=== PATIENT | male | born 1960 | race Caucasian/White ===

== ENCOUNTER 2024-04-06 02:53 | Observation (INO) ==
--- NOTE | 2024-04-06 02:58 | Emergency Department Note ---
HPI - SOB/Dyspnea General Chief Complaint: SOB -Shortness of Breath Stated Complaint: SOB Time Seen by Provider: 04/06/24 02:57 Source: patient, family and EMS Mode of arrival: ambulance Limitations: no limitations History of Present Illness HPI Narrative: 63-year-old male presents to ER via EMS with complaint of shortness of breath, nonproductive cough, hypertension, and reports that he has not been taking his m edications as directed because he ran out. MD elicited complaint: Reports shortness of breath and cough Pertinent past history: Reports COPD and congestive heart failure Onset (ago): day(s) (3) Context: Reports recent illness and medication noncompliance Timing: Reports constant and progressively worsening Severity: moderate Exacerbating factors: Reports lying flat, exertion, movement, coughing, stress, warm air and humidity Relieving factors: Reports oxygen, rest, bronchodilators, upright position, medication and cool air Known history of: Reports COPD and congestive heart failure Associated symptoms: Reports chest pain, cough and orthopnea Treatment prior to arrival: Reports oxygen, bronchodilator and diuretics Related Data Home oxygen amount: 3 liters Allergies Allergy/AdvReac Type Severity Reaction Status Date / Time ketorolac (From Toradol) Allergy Unknown Verified 04/06/24 03:12 tramadol Allergy Unknown Verified 04/06/24 03:12 Review of Systems Status of ROS 10 or more systems reviewed and unremark able except as noted in history and below Constitutional Reports: fever and fatigue; Denies: chills, change in weight, ma laise, night sweats or change in sleep pattern Eyes Denies: change in vision, blurry vision, blind spots, light sensitivity, eye discomfort, eye discharge, dry eyes, increased production of tears, floaters, seeing flashes or decreased night vision Ears, nose, mouth, and throat Reports: nasal congestion; Denies: throat pain, neck pain, throat swelling, difficulty swallowing, hoarseness, mouth pain, swelling of lips/tongue, dry mouth, bad breath, ear pain, ear discharge, change in hearing, tinnitus, vertigo, nasal discharge, nose bleeds or post nasal drip Cardiovascular Reports: chest pain, swelling of feet/ankles, shortness of breath with exertion and shortness of breath when lying down; Denies: palpitati ons, edema, lightheadedness, leg pain with exertion or bluish discoloration of hands/feet Respiratory Reports: shortness of breath, cough, change in phlegm color and chest congestion; Denies: wheezing, stridor, pain on inspiration or coughing up blood Gastrointestinal Denies: abdominal pain, nausea, vomiting, coffee grounds in vomit, heartburn, diarrhea, constipation, bloating, belching, excessive passing of gas, difficulty swallowing, feeling full early, change in bowel habits, painful bowel movements, rectal pain, rectal swelling, rectal itching, change in stool character, blood in stool, mucus in stool, white/light colored stool or fatty stool Genitourinary Denies: painful urination, urinary frequency, urinary urgency, blood in urine, genital pain, genital lesion, penile discharge, testicular pain, testicular mass, scrotal swelling, difficulty urinating, nighttime urination, change in urine stream, decreased urine ouput, difficulty starting urination, urinary hesitancy, urinary dribbling, difficulty with ejactulations, painful ejaculations, blood in semen, change in libido or difficulty impregnating Musculoskeletal Reports: extremity swelling; Denies: back pain, neck pain, extremity pain, joint pain, limited range of motion, joint swelling, muscle cramps, muscle weakness or loss of height Integumentary/Breast Denies: rash, itching, redness, skin pain, skin tenderness, skin swelling, sores, new lesion, changing lesion, non-healing lesion, changes in skin color, jaundice, stretch tiwari, acne, nail changes, change in hair, breast pain, breast swelling, nipple discharge, breast mass, breast skin changes or change in breast shape Neurological Denies: headache, numbness in extremities, weakness in extremities, lack of coordination, dizziness, vertigo, confusion, behavioral changes, slurred speech, difficulty communicating thoughts, seizure-like activity or involuntary movements Psychiatric Reports: anxiety; Denies: mood swings, panic attacks, change in sleep pattern, hopelessness, loss of interest, irritability, paranoia, memory loss, difficulty concentrating, visual hallucinations, auditory hallucinations, tactile hallucinations, suicidal ideation or homicidal ideation Endocrine Denies: excessive urination, excessive thirst, fatigue, cold intolerance, excessive sweating, flushing, heat intolerance, deepening of the voice, change in body appearance or change in libido Hematologic/Lymphatic Denies: easy bruising, easy bleeding or enlarged lymph nodes Allergic/Immunologic Reports: wheezing; Denies: hives, throat swelling, tongue swelling, facial swelling, itchy eyes, seasonal allergies or food intolerance [facility] Medical History (Updated 04/06/24 @ 03:21 by Susy Pate RN) Pacemaker Dyslipidemia CHF (congestive heart failure) Myocardial infarct CAD (coronary artery disease) COPD (chronic obstructive pulmonary disease) Surgical History (Updated 04/06/24 @ 03:21 by Susy Pate RN) H/O vasectomy S/P angioplasty with stent Social History Smoking status: current every day smoker What tobacco products do you use: cigarettes Packs per day: 2 Smoking quit date/years: >15 years ago Second hand tobacco smoke exposure: No Within the past year, how often did you have a drink containing alcohol: monthly or less Within the past year, how many standard drinks containing alcohol did you have on a typical day: 1 or 2 Within the past year, how often did you have six or more drinks on one occasion: never Total score: 0 Score interpretation: A score less than 4 is consistent with normal alcohol consumption. Non-prescribed substance use: denies use What is your current living situation: I presently have a place to live Problems where you live: no known problems In the past 12 months, utilities in danger of being shut off: no In past 12 months, lack of transportation kept you from medical appts, meetings, work, or getting things needed for daily living: No How hard is it for you to pay for the very basics like food, housing, medical care, and heating: decline to answer Past 12 mos, fear food will run out before able to buy more: never true In past 12 months, food didn't last until money to buy more: never true Are you following a diet prescribed by a doctor: No Are you following a special diet: No Do you want help finding or keeping work or a job: I do not need or want help Known occupational exposures/hazards: No Highest level of school completed/degree received: decline to answer Do you want help with school or training: No Physical activity type: none Leisure activities: none Caffeine: No How often does anyone, including family, friends and others, physically hurt you : never How often does anyone, including family, friends and others, insult or talk down to you: never How often does anyone, including family, friends and others, threaten you with harm: never How often does anyone, including family, friends and others, scream or curse at you: never Firearms in home: unknown Do you need help with ADLs: I don't need any help Due to a physical, mental, or emotional condition, do you have difficulty doing errands alone such as visiting a doctor's office or shopping: No Little interest or pleasure in doing things: not at all Feeling down, depressed, or hopeless: not at all Feel stressed/tense/nervous/anxious/difficulty sleeping: to some extent Life stressor details: Current medical condition Due to disability, difficulty making decisions: No Do you think of yourself as: straight/heterosexual Gender Identity: male Are you currently sexually active: Yes Are you using contraception or practicing any form of control: No service: No Exam Constitutional: normal general appearance, distress noted (moderate) and (respiratory), abnormal body habitus (overweight), no limitations and alert Vital Signs - 24 hr 04/06/24 02:53 04/06/24 03:09 04/06/24 03:15 Temperature 98.9 F Pulse Rate 102 H 97 H Respiratory Rate 22 20 Blood Pressure 202/120 202/120 Pulse Oximetry 98 97 97 Oxygen Delivery Me thod Nasal Cannula Room Air Oxygen Flow Rate 3 04/06/24 03:30 04/06/24 03:56 04/06/24 04:00 Temperature Pulse Rate 106 H 98 H Respiratory Rate 15 14 Blood Pressure 193/121 164/97 164/97 Pulse Oximetry 99 96 Oxygen Delivery Me thod Room Air Room Air Oxygen Flow Rate 04/06/24 04:30 04/06/24 05:00 04/06/24 05:05 Temperature Pulse Rate 93 H 93 H Respiratory Rate 13 14 Blood Pressure 153/102 159/112 159/112 Pulse Oximetry 97 95 Oxygen Delivery Me thod Room Air Room Air Oxygen Flow Rate 04/06/24 05:30 Temperature Pulse Rate 87 Respiratory Rate 15 Blood Pressure 165/102 Pulse Oximetry 97 Oxygen Delivery Me thod Room Air Oxygen Flow Rate HENMT: normocephalic, head/scalp atraumatic, hearing grossly normal bilaterally, external ears normal, EACs normal, nasal mucous membranes normal, external nose normal, oral mucous membranes normal, oropharynx normal, dentition normal and gingiva normal Eyes: PERRL, EOMs intact bilaterally, conjunctivae normal, no scleral icterus, no papilledema, normal visual wei by confrontation, alignment normal, periorbital findings normal and no nystagmus Neck/C-Spine: visual inspection normal, trachea midline, cervical spine nontender, cervical full ROM noted, supple, no meningeal signs and thyroid normal Lymph: no lymphadenopathy noted and no lymphedema noted Chest: inspection of chest normal, inspection of breast(s) abnormal and palpation of breast(s) abnormal Respiratory: breath sounds equal bilaterally, abnormal respiratory effort (labored), clear to auscultation bilaterally, wheezing noted (expiratory wheezes), rales noted (throughout), no retractions and use of accessory muscles noted (Belly Breathing) Cardiovascular: heart rate abnormal (102) (tachycardic), regular rhythm noted, no JVD, no clicks, peripheral pulses 2+ throughout and no additional abnormal heart sounds Gastrointestinal: abdomen normal to inspection, abdomen soft to palpation, nontender to palpation, distended, normoactive bowel sounds, no hepatosplenomegaly, no masses, no pulsatile mass and normal rectal exam (deferred) Genitourinary: no CVA tenderness, bladder normal to palpation, penis abnormal (deferred), uncircumcised, testes abnormal, meatus abnormal (deferred), scrotum abnormal (deferred) and inguinal lymphadenopathy noted Back/Pelvis: spine normal to inspection, no thoracic spine tenderness, no lumbar spine tenderness, thoracic spine ROM normal, lumbar spine ROM normal and no paraspinal muscle tenderness noted Extremities: normal to inspection, normal to palpation, no tenderness, full ROM, no joint enlargement and no deformity Neurology: stone paver II-XII intact, no movement abnormality noted, no focal motor deficit noted, no sensory deficits noted, gait abnormality noted (unable to access), speech normal, coordination normal, no pronator drift noted, no fasciculations noted and GCS normal Psychiatry: Mental Status Exam documented within this Exam's Psych section mental status grossly normal, oriented x3, thought process normal, cooperative, affect normal, psychomotor activity normal and memory normal Feel stressed/tense/nervous/anxious/difficulty sleeping: to some extent Life stressor details: Current medical condition Skin: skin color normal, no rash, no lesions, no ecchymosis noted, no wounds, no lacerations, skin turgor normal, no jaundice, no petechiae, no mottling, nails normal and no alopecia Course Course Hospital Course: 63-year-old male that presented to the ER via EMS with complaint of shortness of breath, sputum color change, fever, body aches x 2 to 3 days has been evaluated by physical exam, CBC, CMP, magnesium, phosphorus, BNP, serial troponins, EKG, plain film chest x-ray, and urinalysis results as noted in charting. Patient's initial troponin was mildly elevated but is trending downward, [facility] diuresis and respiratory therapy. Patient will continue to receive breathing treatments and steroid therapy during his stay as well as electrolyte management. Patient and family agree with treatment regimen and [facility] as soon as a bed is available. Vital Signs Vital signs: Vital Signs Temperature 98.9 F 04/06/24 02:53 Pulse Rate 102 H 04/06/24 02:53 Respiratory Rate 22 04/06/24 02:53 Blood Pressure 202/120 04/06/24 02:53 Pulse Oximetry 98 04/06/24 02:53 Oxygen Delivery Method Nasal Cannula 04/06/24 02:53 Oxygen Flow Rate 3 04/06/24 02:53 Temperature 98.9 F 04/06/24 02:53 Pulse Rate 87 04/06/24 05:30 Respiratory Rate 15 04/06/24 05:30 Blood Pressure 165/102 04/06/24 05:30 Pulse Oximetry 97 04/06/24 05:30 Oxygen Delivery Method Room Air 04/06/24 05:30 Oxygen Flow Rate 3 04/06/24 02:53 MDM - SOB/Dyspnea MDM Narrative Medical decision making narrative: Medical decision making this patient above physical exam, CBC, CMP, urinalysis, magnesium, phosphorus, serial troponins, EKG, plain film chest x-ray, and BNP. Differential Diagnosis Differential diagnosis: Likely acute exacerbation of chronic obstructive airways disease, congestive heart failure, community acquired pneumonia and other (Influenza, COVID, fluid overload) Lab Data Attestation: I reviewed the patient's lab results. Labs: Lab Results 04/06/24 04/06/24 04/06/24 Range/Units 03:10 03:20 03:30 WBC 5.1 (3.7-9.6) K/uL RBC 5.0 (4.40-5.80) M/uL Hgb 16.3 (14.0-17.4) gm/dL Hct 48.8 (41.3-50.1) % MCV 97.2 H (81.9-96.5) fl MCH 32.6 (27.6-33.7) pg MCHC 33.5 (33.0-35.7) g/dl RDW 14.2 (11.0-14.8) % Plt Count 175 (142-355) K/uL MPV 9.8 (6.0-10.4) fl Gran % 71.0 (49.1-73.1) % Lymph % (Auto) 17.9 (17.6-39.05) % [place] % (Auto) 10.1 (4.5-10.7) % Eos % (Auto) 0.2 (0.0-4.0) % Baso % (Auto) 0.8 (0.0-1.3) Lymph # (Auto) 0.9 (0.8-2.9) [place] # (Auto) 0.5 (0.2-0.8) Eos # (Auto) 0.0 (0.0-0.3) Baso # (Auto) 0.0 (0.0-0.1) Absolute Gran (auto) 3.6 (2.0-6.2) Sodium 137 (136-145) mmol/L Potassium 4.4 (3.6-5.2) mmol/L Chloride 98.0 (98-107) mmol/L Carbon Dioxide 30 (21-32) mmol/L Anion Gap 9.0 (4-14) mEq/L BUN 16 (7-18) mg/dL Creatinine 1.1 (0.6-1.3) mg/dL Estimated GFR 76.4 (>59.9) Glucose 93 (70-110) mg/dL Calcium 9.1 (8.5-10.1) mg/dL Magnesium 2.8 H* (1.8-2.4) mg/dL Total Bilirubin 0.80 (0.0-1.0) mg/dL AST 199 H (15-37) U/L ALT 282 H (30-65) U/L Alkaline Phosphatase 91 (50-136) U/L Troponin I High Sens 69.60 H* (4.0-60.4) ng/L B-Natriuretic Peptide 132.0 H (0-100) pg/mL Total Protein 8.6 H (6.4-8.2) g/dL Albumin 3.6 (3.4-5.0) g/dL Urine Color (STRAW/YELL.) Urine Appearance (CLEAR) Ur Specific [place] (1.001-1.035) Urine Protein (NEGATIVE) Urine Glucose (UA) (NORMAL) Urine Ketones (NEGATIVE) Urine Occult Blood (NEG - TRACE) Urine Nitrite (NEGATIVE) Urine Bilirubin (NEGATIVE) Urine Urobilinogen (NORMAL) Ur Leukocyte Esterase (NEGATIVE) Fluid pH (5 - 9) COVID-19 (RANDI) Not detected (Not Detectd) Influenza Type A Ag Negative (Negative) Influenza Type B Ag Negative (Negative) 04/06/24 04/06/24 Range/Units 05:16 05:30 WBC (3.7-9.6) K/uL RBC (4.40-5.80) M/uL Hgb (14.0-17.4) gm/dL Hct (41.3-50.1) % MCV (81.9-96.5) fl MCH (27.6-33.7) pg MCHC (33.0-35.7) g/dl RDW (11.0-14.8) % Plt Count (142-355) K/uL MPV (6.0-10.4) fl Gran % (49.1-73.1) % Lymph % (Auto) (17.6-39.05) % [place] % (Auto) (4.5-10.7) % Eos % (Auto) (0.0-4.0) % Baso % (Auto) (0.0-1.3) Lymph # (Auto) (0.8-2.9) [place] # (Auto) (0.2-0.8) Eos # (Auto) (0.0-0.3) Baso # (Auto) (0.0-0.1) Absolute Gran (auto) (2.0-6.2) Sodium (136-145) mmol/L Potassium (3.6-5.2) mmol/L Chloride (98-107) mmol/L Carbon Dioxide (21-32) mmol/L Anion Gap (4-14) mEq/L BUN (7-18) mg/dL Creatinine (0.6-1.3) mg/dL Estimated GFR (>59.9) Glucose (70-110) mg/dL Calcium (8.5-10.1) mg/dL Magnesium (1.8-2.4) mg/dL Total Bilirubin (0.0-1.0) mg/dL AST (15-37) U/L ALT (30-65) U/L Alkaline Phosphatase (50-136) U/L Troponin I High Sens 64.90 H* (4.0-60.4) ng/L B-Natriuretic Peptide (0-100) pg/mL Total Protein (6.4-8.2) g/dL Albumin (3.4-5.0) g/dL Urine Color Straw (STRAW/YELL.) Urine Appearance Clear (CLEAR) Ur Specific [place] 1.010 (1.001-1.035) Urine Protein Negative (NEGATIVE) Urine Glucose (UA) Normal (NORMAL) Urine Ketones Negative (NEGATIVE) Urine Occult Blood Negative (NEG - TRACE) Urine Nitrite Negative (NEGATIVE) Urine Bilirubin Negative (NEGATIVE) Urine Urobilinogen Normal (NORMAL) Ur Leukocyte Esterase Negative (NEGATIVE) Fluid pH 6.0 (5 - 9) COVID-19 (RANDI) (Not Detectd) Influenza Type A Ag (Negative) Influenza Type B Ag (Negative) Imaging Data Imaging ordered: Chest x-ray ECG Data Attestation: I have reviewed the pertinent ECG results. Interpretation: Sinus tachycardia rate 101 RR 596 IN 133 P axis 80 QRS 80 T 64 Discharge Plan Discharge Patient Disposition: Admitted As Observation Condition: Improved Chief Complaint: SOB -Shortness of Breath Clinical Impression: Congestive heart failure, Acute infective exacerbation of chronic obstructive airway disease, Pulmonary edema with congestive heart failure Print Language: Yi Referrals: Jorge Hermosillo DO [Primary Care Provider] - Time of Disposition: 06:25
[2024-04-06] MEDS: MAGNESIUM SULFATE 1 GM/2 ML 2 GM in 0.9 % SODIUM CHLORIDE 100ML 100 ML IV ONE (03:02)
[2024-04-06] MEDS: IPRATROPIUM/ALBUTEROL SULFATE 3 ML AMPUL.NEB INH ONE (03:15)
[2024-04-06 03:45] LABS: Basophils%(Percent) Auto 0.8 (0.0-1.3); Eosinophils%(Percent) Auto 0.2 % (0.0-4.0); Granulocytes#(Absolute)- Auto 3.6 (2.0-6.2); Hematocrit 48.8 % (41.3-50.1); Mean Corpuscular Volume 97.2 fl (81.9-96.5); Monocytes #(Absolute)- Auto 0.5 (0.2-0.8); Monocytes %(Percent)- Auto 10.1 % (4.5-10.7); Platelet Count 175 K/uL (142-355); White Blood Count 5.1 K/uL (3.7-9.6)
[2024-04-06] MEDS: HYDRALAZINE HCL 20 MG/ML VIAL IVP ONE (03:56)
[2024-04-06 04:08] LABS: Potassium 4.4 mmol/L (3.6-5.2)
[2024-04-06] MEDS: LORazepam 2 MG/ML VIAL IVP ONE (05:27)
[2024-04-06 05:57] LABS: Urine Appearance CLEAR (CLEAR); Urine Blood NEGATIVE (NEG - TRACE); Urine Color STRAW (STRAW/YELL.); Urine Urobilinogen Normal (NORMAL)
[2024-04-06] MEDS ORDERED: MAGNESIUM, ALUMINUM HYDROXIDE 30 ML ORAL.SUSP PO PRN (08:29)
[2024-04-06] MEDS ORDERED: bisacodyL 10 MG SUPP.RECT PR PRN (08:29)
[2024-04-06] MEDS: ACETAMINOPHEN 500 MG TABLET PO PRN (10:22)
[2024-04-06] MEDS: SPIRONOLACTONE 50 MG TABLET PO SCH (10:23)
[2024-04-06] MEDS: ASPIRIN 81 MG TABLET.DR PO SCH (10:23)
[2024-04-06 10:32] LABS: Amphetamine Screen Urine NEG. (NEGATIVE); Cannabinoid Screen Urine NEG. (NEGATIVE); Cocaine Screen Urine NEG. (NEGATIVE); Methadone Screen Urine NEG. (NEGATIVE); Opiate Screen Urine NEG. (NEGATIVE)
[2024-04-06] MEDS: LORazepam 2 MG/ML VIAL IVP PRN (12:21)
[2024-04-06] MEDS ORDERED: PHENOBARBITAL SODIUM INJ SCH (12:30)
[2024-04-06] MEDS ORDERED: SODIUM CHLORIDE 0.9% INJ SCH (12:30)
[2024-04-06] MEDS: PHENOBARBITAL SODIUM INJ SCH (14:01)
[2024-04-06] MEDS: SODIUM CHLORIDE 0.9% INJ SCH (14:01)
[2024-04-06] MEDS: NICOTINE 21 MG/HR .TD24 TD SCH (18:41)
[2024-04-06] MEDS ORDERED: PHENobarbitaL sodium 65 MG/ML VIAL ONE (19:28)
[2024-04-06] MEDS ORDERED: HYDRALAZINE HCL 20 MG/ML VIAL IVP PRN (23:58)
[2024-04-07] MEDS: HYDRALAZINE HCL 20 MG/ML VIAL IVP ONE (00:09)
[2024-04-07 05:46] LABS: Basophils%(Percent) Auto 0.3 (0.0-1.3); Granulocytes % - Auto 82.5 % (49.1-73.1); Granulocytes#(Absolute)- Auto 6.6 (2.0-6.2); Hematocrit 42.3 % (41.3-50.1); Mean Corpuscular Volume 96.9 fl (81.9-96.5); Monocytes #(Absolute)- Auto 0.6 (0.2-0.8); Platelet Count 142 K/uL (142-355)
[2024-04-07 06:29] LABS: Potassium 3.5 mmol/L (3.6-5.2)
[2024-04-07] MEDS: PHENOBARBITAL SODIUM INJ SCH (09:25)
[2024-04-07] MEDS: SODIUM CHLORIDE 0.9% INJ SCH (09:25)
[2024-04-07] MEDS: PANTOPRAZOLE SODIUM 40 MG TABLET.DR PO SCH (10:24)
[2024-04-07] MEDS: LOSARTAN POTASSIUM 50 MG TABLET PO SCH (10:24)
[2024-04-07] MEDS: IPRATROPIUM/ALBUTEROL SULFATE 3 ML AMPUL.NEB INH SCH ×2 (11:17→12:40)
[2024-04-07] MEDS: METHYLPREDNISOLONE SOD SUCC/PF 40 MG/ML VIAL INJ SCH (12:18)
--- NOTE | 2024-04-07 16:59 | History & Physical Report ---
H&P: HPI History of Present Illness Chief complaint: CHF exacerbation, elevated troponin Narrative: 63-year-old male presented to ER via EMS with complaint of shortness of breath, nonproductive cough, hypertension, and reported he has not been taking his medications as directed because he ran out. Admitted to med/surg for observation and treatment. Day one of hospital stay, patient is anxious and jittery. He disclosed he drinks 10-12 "tall boy" beers every day. Patient expressed he wants to quite drinking a nd would like to have help doing so while in the hospital. CIUT Protocol was put in place to help patient get through alcohol withdraw and side effects of not drinking. Patient is on 3L O2, same level as home O2. Dr. Hermosillo is patient's Aws Developer as well as PCP. Provider has requested Pulmonary Rehab to screen patient for possible evaluation and treatment. Day two of hospital stay, patient had to request anti-anxiety medication through the night to help him rest. IV was pulled out on accident during sleep through the night per nurse. Provider recommends an aggressive treatment of Phenobar bital with Ativan to help with withdraw of alcohol abuse. Patient feels SOB, hoarse voice, experiencing epigastric pain (sharp), N/V/D X1 through the night. Starting DuoNeb treatment today for wheezing on inspiratory and expiratory. Review of Systems Status of ROS 10 or more systems reviewed and unremark able except as noted in history and below Constitutional Reports: fever; Denies: chills, change in weight, fatigue, malaise, night sweats or change in sleep pattern Eyes Denies: change in vision, blurry vision, blind spots, light sensitivity, eye discomfort, eye discharge, dry eyes, increased production of tears, floaters, seeing flashes or decreased night vision Ears, nose, mouth, and throat Reports: nasal congestion; Denies: throat pain, neck pain, throat swelling, difficulty swallowing, hoarseness, mouth pain, swelling of lips/tongue, dry mouth, bad breath, ear pain, ear discharge, change in hearing, tinnitus, vertigo, nasal discharge, nose bleeds or post nasal drip Cardiovascular Reports: chest pain, swelling of feet/ankles, shortness of breath with exertion and shortness of breath when lying down; Denies: palpitations, edema, lightheadedness, leg pain with exertion or bluish disco loration of hands/feet Respiratory Reports: shortness of breath, cough, wheezing, change in phlegm color and chest congestion; Denies: stridor, pain on inspiration or coughing up blood Gastrointestinal Denies: abdominal pain, nausea, vomiting, coffee grounds in vomit, heartburn, diarrhea, constipation, bloating, belching, excessive passing of gas, difficulty swallowing, feeling full early, change in bowel habits, painful bowel movements, rectal pain, rectal swelling, rectal itching, change in stool character, blood in stool, mucus in stool, white/light colored stool or fatty stool Genitourinary Denies: painful urination, urinary frequency, urinary urgency, blood in urine, genital pain, genital lesion, penile discharge, testicular pain, testicular mass, scrotal swelling, difficulty urinating, nighttime urination, change in urine stream, decreased urine ouput, difficulty starting urination, urinary hesitancy, urinary dribbling, difficulty with ejactulations, painful ejaculations, blood in semen, change in libido or difficulty impregnating Musculoskeletal Reports: extremity swelling; Denies: back pain, neck pain, extremity pain, joint pain, limited range of motion, joint swelling, muscle cramps, muscle weakness or loss of height Integumentary/Breast Denies: rash, itching, redness, skin pain, skin tenderness, skin swelling, sores, new lesion, changing lesion, non-healing lesion, changes in skin color, jaundice, stretch tiwari, acne, nail changes, change in hair, breast pain, breast swelling, nipple discharge, breast mass, breast skin changes or change in breast shape Neurological Denies: headache, numbness in extremities, weakness in extremities, lack of coordination, dizziness, vertigo, confusion, behavioral changes, slurred speech, difficulty communicating thoughts, seizure-like activity or involuntary movements Psychiatric Reports: anxiety; Denies: mood swings, panic attacks, change in sleep pattern, hopelessness, loss of interest, irritability, paranoia, memory lo ss, difficulty concentrating, visual hallucinations, auditory hallucinations, tactile hallucinations, suicidal ideation or homicidal ideation Endocrine Denies: excessive urination, excessive thirst, fatigue, cold intolerance, excessive sweating, flushing, heat intolerance, deepening of the voice, change in body appearance or change in libido Hematologic/Lymphatic Denies: easy bruising, easy bleeding or enlarged lymph nodes Allergic/Immunologic Reports: wheezing; Denies: hives, throat swelling, tongue swelling, facial swelling, itchy eyes, seasonal allergies or food intolerance PFSH PFSH Medical History (Updated 04/07/24 @ 16:53 by MAURICIO Schwartz) Pacemaker Dyslipidemia CHF (congestive heart failure) Myocardial infarct CAD (coronary artery disease) COPD (chronic obstructive pulmonary disease) Surgical History (Updated 04/06/24 @ 03:21 by Susy Pate RN) H/O vasectomy S/P angioplasty with stent Social History Smoking status: current every day smoker What tobacco products do you use: cigarettes Packs per day: 2 Smoking quit date/years: >15 years ago Second hand tobacco smoke exposure: No Within the past year, how often did you have a drink containing alcohol: monthly or less Within the past year, how many standard drinks containing alcohol did you have on a typical day: 1 or 2 Within the past year, how often did you have six or more drinks on one occasion: never Total score: 0 Score interpretation: A score less than 4 is consistent with normal alcohol consumption. Non-prescribed substance use: denies use What is your current living situation: I presently have a place to live Problems where you live: no known problems In the past 12 months, utilities in danger of being shut off: no In past 12 months, lack of transportation kept you from medical appts, meetings, work, or getting things needed for daily living: No How hard is it for you to pay for the very basics like food, housing, medical care, and heating: decline to answer Past 12 mos, fear food will run out before able to buy more: never true In past 12 months, food didn't last until money to buy more: never true Are you following a diet prescribed by a doctor: No Are you following a special diet: No Do you want help finding or keeping work or a job: I do not need or want help Known occupational exposures/hazards: No Highest level of school completed/degree received: high school Do you want help with school or training: No Physical activity type: none Leisure activities: none Caffeine: No How often does anyone, including family, friends and others, physically hurt you : never How often does anyone, including family, friends and others, insult or talk down to you: never How often does anyone, including family, friends and others, threaten you with harm: never How often does anyone, including family, friends and others, scream or curse at you: never Firearms in home: unknown Do you need help with ADLs: I don't need any help Due to a physical, mental, or emotional condition, do you have difficulty doing errands alone such as visiting a doctor's office or shopping: No Little interest or pleasure in doing things: not at all Feeling down, depressed, or hopeless: not at all Feel stressed/tense/nervous/anxious/difficulty sleeping: to some extent Life stressor details: Current medical condition Due to disability, difficulty making decisions: No Do you think of yourself as: straight/heterosexual Gender Identity: male Are you currently sexually active: Yes Are you using contraception or practicing any form of control: No service: No Meds Home Medications and Allergies Home Medications Medication Instructions Recorded Confirmed Type doxycycline hyclate 100 mg capsule 100 mg PO BID 04/06/24 04/06/24 History hydrochlorothiazide 25 mg tablet 25 mg PO DAILY 04/06/24 04/06/24 History ipratropium 0.5 mg-albuterol 3 mg 3 ml inhalation Q8H 04/06/24 04/06/24 History (2.5 mg base)/3 mL nebulization soln losartan 50 mg tablet 50 mg PO DAILY 04/06/24 04/06/24 History nicotine 21 mg/24 hr daily 1 patch transdermal DAILY 04/06/24 04/06/24 History transdermal patch (Nicoderm CQ) pantoprazole 40 mg tablet,delayed 40 mg PO DAILY 04/06/24 04/06/24 History release Allergies Allergy/AdvReac Type Severity Reaction Status Date / Time ketorolac (From Toradol) Allergy Unknown Verified 04/06/24 03:12 tramadol Allergy Unknown Verified 04/06/24 03:12 Exam Exam: Patient sitting up on side of bed and family member at bedside upon entering room for exam. Constitutional: normal general appearance, distress noted (moderate) and (respiratory), abnormal body habitus (overweight), no limitations and alert Vital Signs - 24 hr 04/06/24 20:00 04/07/24 00:00 04/07/24 00:09 Temperature 97.6 F 97.9 F Pulse Rate [Left C arotid] 98 H 107 H Respiratory Rate 17 17 Blood Pressure 164/108 Blood Pressure [Ri ght Arm] 153/97 156/92 Pulse Oximetry 97 98 Oxygen Delivery Me thod Room Air Nasal Cannula Oxygen Flow Rate 3 3 04/07/24 01:32 04/07/24 02:00 04/07/24 04:00 Temperature 97.7 F Pulse Rate [Left C arotid] 102 H Respiratory Rate 17 Blood Pressure 156/92 156/92 Blood Pressure [Ri ght Arm] 140/86 Pulse Oximetry 96 Oxygen Delivery Me thod Nasal Cannula Oxygen Flow Rate 3 04/07/24 08:00 04/07/24 10:00 04/07/24 10:24 Temperature 97.7 F Pulse Rate [Left C arotid] 92 H Respiratory Rate 19 Blood Pressure 151/99 151/99 Blood Pressure [Ri ght Arm] 151/99 Pulse Oximetry 97 Oxygen Delivery Me thod Nasal Cannula Oxygen Flow Rate 3 04/07/24 11:17 04/07/24 11:17 04/07/24 11:59 Temperature 97.5 F L Pulse Rate [Left C arotid] 117 H Respiratory Rate 19 Blood Pressure Blood Pressure [Ri ght Arm] 155/100 Pulse Oximetry 96 96 97 Oxygen Delivery Me thod Nasal Cannula Nasal Cannula Oxygen Flow Rate 3 3 04/07/24 14:00 04/07/24 15:10 04/07/24 16:00 Temperature 97.6 F Pulse Rate [Left C arotid] 108 H Respiratory Rate 18 Blood Pressure 155/98 Blood Pressure [Ri ght Arm] 139/85 Pulse Oximetry 92 L 98 Oxygen Delivery Me thod Nasal Cannula Oxygen Flow Rate 3 HENMT: normocephalic, head/scalp atraumatic, hearing grossly normal bilaterally, external ears normal, EACs normal, nasal mucous membranes normal, external nose normal, oral mucous membranes normal, oropharynx normal, dentition normal and gingiva normal Eyes: PERRL, EOMs intact bilaterally, conjunctivae normal, no scleral icterus, no papilledema, normal visual wei by confrontation, alignment normal, periorbital findings normal and no nystagmus Neck/C-Spine: visual inspection normal, trachea midline, cervical spine nontender, cervical full ROM noted, supple, no meningeal signs and thyroid normal Lymph: no lymphadenopathy noted and no lymphedema noted Chest: inspection of chest normal, inspection of breast(s) abnormal and palpation of breast(s) abnormal Respiratory: breath sounds equal bilaterally, abnormal respiratory effort (labored), clear to auscultation bilaterally, wheezing noted (expiratory wheezes), rales noted (throughout), no retractions and use of accessory muscles noted (Belly Breathing) Cardiovascular: heart rate abnormal (102) (tachycardic), regular rhythm noted, no JVD, no clicks, peripheral pulses 2+ throughout and no additional abnormal heart sounds Gastrointestinal: abdomen normal to inspection, abdomen soft to palpation, nontender to palpation, distended, normoactive bowel sounds, no hepatosplenomegaly, no masses, no pulsatile mass and normal rectal exam (deferred) Genitourinary: no CVA tenderness, bladder normal to palpation, penis abnormal (deferred), uncircumcised, testes abnormal, meatus abnormal (deferred), scrotum abnormal (deferred) and inguinal lymphadenopathy noted Back/Pelvis: spine normal to inspection, no thoracic spine tenderness, no lumbar spine tenderness, thoracic spine ROM normal, lumbar spine ROM normal and no paraspinal muscle tenderness noted Extremities: normal to inspection, normal to palpation, no tenderness, full ROM, no joint enlargement and no deformity Neurology: professor of 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 II-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 intact, no movement abnormality noted, no focal motor deficit noted, no sensory deficits noted, gait abnormality noted (unable to access), speech normal, coordination normal, no pronator drift noted, no fasciculations noted and GCS normal Psychiatry: Mental Status Exam documented within this Exam's Psych section mental status grossly normal, oriented x3, thought process normal, cooperative, affect normal, psychomotor activity normal and memory normal Skin: skin color normal, no rash, no lesions, no ecchymosis noted, no wounds, no lacerations, skin turgor normal, no jaundice, no petechiae, no mottling, nails normal and no alopecia Assessment and Plan Assessment and Plan (1) CHF exacerbation: Qualifiers: Heart failure type: unspecified Qualified Code(s): I50.9 - Heart failure, unspecified Code(s): I50.9 - Heart failure, unspecified (2) Elevated troponin: Code(s): R79.89 - Other specified abnormal findings of blood chemistry (3) COPD (chronic obstructive pulmonary disease): Qualifiers: COPD type: COPD with acute exacerbation Qualified Code(s): J44.1 - Chronic obstructive pulmonary disease with (acute) exacerbation Code(s): J44.9 - Chronic obstructive pulmonary disease, unspecified (4) CAD (coronary artery disease): Qualifiers: Coronary Disease-Associated Artery/Lesion type: douglas artery [place] vs. transplanted heart: douglas heart Associated angina: unspecified whether angina present Qualified Code(s): I25.10 - Atherosclerotic heart disease of douglas coronary artery without angina pectoris Code(s): I25.10 - Atherosclerotic heart disease of douglas coronary artery without angina pectoris (5) Dyspnea: Qualifiers: Dyspnea type: shortness of breath Qualified Code(s): R06.02 - Shortness of breath Code(s): R06.00 - Dyspnea, unspecified Plan Aspirin 81 mg PO DAILY Spironolactone 25 mg PO DAILY Phenobarbital Sodium 400 mg in Sodium Chloride 56.1538 mls @ 100 mls/hr INJ ONCE Nicotine 21 mg/hr patch (1) ea. TD DAILY Phenobarbital Sodium 260 mg in Sodium Chloride 54 @ 100 mls/hr INJ ONCE Hydrochlorothiazide 25 mg PO DAILY Losartan Potassium 50 mg PO DAILY Pantoprazole Sodium 40 mg PO DAILY Albuterol Sulfate 3 ml INH RQ4 Budesonide 0.5 mg INH RBID Methylprednisolone Sodium Succinate 40 mg INJ Q12H Acetaminophen 500 mg PO Q6H PRN Lorazepam 1 mg IVP Q1H PRN Results Labs Labs: CBC WBC 8.0 K/uL (3.7-9.6) 04/07/24 05:35 RBC 4.4 M/uL (4.40-5.80) 04/07/24 05:35 Hgb 14.6 gm/dL (14.0-17.4) 04/07/24 05:35 Hct 42.3 % (41.3-50.1) 04/07/24 05:35 MCV 96.9 fl (81.9-96.5) H 04/07/24 05:35 MCH 33.3 pg (27.6-33.7) 04/07/24 05:35 MCHC 34.4 g/dl (33.0-35.7) 04/07/24 05:35 RDW 14.1 % (11.0-14.8) 04/07/24 05:35 Plt Count 142 K/uL (142-355) 04/07/24 05:35 MPV 9.4 fl (6.0-10.4) 04/07/24 05:35 Gran % 82.5 % (49.1-73.1) H 04/07/24 05:35 Lymph % (Auto) 9.2 % (17.6-39.05) L 04/07/24 05:35 [place] % (Auto) 8.0 % (4.5-10.7) 04/07/24 05:35 Eos % (Auto) 0.0 % (0.0-4.0) 04/07/24 05:35 Baso % (Auto) 0.3 (0.0-1.3) 04/07/24 05:35 Lymph # (Auto) 0.7 (0.8-2.9) L 04/07/24 05:35 [place] # (Auto) 0.6 (0.2-0.8) 04/07/24 05:35 Eos # (Auto) 0.0 (0.0-0.3) 04/07/24 05:35 Baso # (Auto) 0.0 (0.0-0.1) 04/07/24 05:35 Absolute Gran (auto) 6.6 (2.0-6.2) H 04/07/24 05:35 BMP Sodium 132 mmol/L (136-145) L 04/07/24 05:35 Potassium 3.5 mmol/L (3.6-5.2) L 04/07/24 05:35 Chloride 95.0 mmol/L (98-107) L 04/07/24 05:35 Carbon Dioxide 31 mmol/L (21-32) 04/07/24 05:35 Anion Gap 6.0 mEq/L (4-14) 04/07/24 05:35 BUN 32 mg/dL (7-18) H 04/07/24 05:35 Creatinine 1.1 mg/dL (0.6-1.3) 04/07/24 05:35 Estimated GFR 76.4 (>59.9) 04/07/24 05:35 Glucose 100 mg/dL (70-110) 04/07/24 05:35 Calcium 8.8 mg/dL (8.5-10.1) 04/07/24 05:35 Magnesium 2.2 mg/dL (1.8-2.4) 04/07/24 05:35 Total Bilirubin 0.73 mg/dL (0.0-1.0) 04/07/24 05:35 AST 111 U/L (15-37) H 04/07/24 05:35 ALT 211 U/L (30-65) H 04/07/24 05:35 Alkaline Phosphatase 90 U/L (50-136) 04/07/24 05:35 Total Protein 7.3 g/dL (6.4-8.2) 04/07/24 05:35 Albumin 3.2 g/dL (3.4-5.0) L 04/07/24 05:35 Cardiac Enzymes Troponin I High Sens 53.40 ng/L (4.0-60.4) 04/06/24 17:31 Liver Function Total Bilirubin 0.73 mg/dL (0.0-1.0) 04/07/24 05:35 AST 111 U/L (15-37) H 04/07/24 05:35 ALT 211 U/L (30-65) H 04/07/24 05:35 Alkaline Phosphatase 90 U/L (50-136) 04/07/24 05:35 Total Protein 7.3 g/dL (6.4-8.2) 04/07/24 05:35 Albumin 3.2 g/dL (3.4-5.0) L 04/07/24 05:35 Urine Urine Color Straw (STRAW/YELL.) 04/06/24 05:16 Urine Appearance Clear (CLEAR) 04/06/24 05:16 Ur Specific [place] 1.010 (1.001-1.035) 04/06/24 05:16 Urine Protein Negative (NEGATIVE) 04/06/24 05:16 Urine Glucose (UA) Normal (NORMAL) 04/06/24 05:16 Urine Ketones Negative (NEGATIVE) 04/06/24 05:16 Urine Occult Blood Negative (NEG - TRACE) 04/06/24 05:16 Urine Nitrite Negative (NEGATIVE) 04/06/24 05:16 Urine Bilirubin Negative (NEGATIVE) 04/06/24 05:16 Urine Urobilinogen Normal (NORMAL) 04/06/24 05:16 Ur Leukocyte Esterase Negative (NEGATIVE) 04/06/24 05:16 Imaging Imaging ordered: Chest x-ray Radiologist's impression: Portable chest Date of Service: 04/06/24 HISTORY: Dyspnea COMPARISON: None available FINDINGS: There is a pacemaker present in the left axilla. Heart size is normal. Chantel are normal. Left hemidiaphragm is elevated. Rounded density projected in the right cardiophrenic angle is likely due to a localized small eventration of the right hemidiaphragm. Lungs are hyperinflated but free of acute infiltrates. No pleural effusion or pneumothorax identified. Bony thorax is unremarkable. IMPRESSION: Lungs hyperinflated but free of acute infiltrates, consistent with COPD in the appropriate clinical setting
[2024-04-07] MEDS: BUDESONIDE 0.5 MG/2 ML AMPUL.NEB INH SCH (21:01)
[2024-04-07] MEDS: MORPHINE SULFATE 4 MG/ML CARTRIDGE IVP PRN (22:17)
[2024-04-08 05:03] LABS: Basophils%(Percent) Auto 0.1 (0.0-1.3); Granulocytes % - Auto 92.4 % (49.1-73.1); Granulocytes#(Absolute)- Auto 6.5 (2.0-6.2); Hematocrit 43.1 % (41.3-50.1); Monocytes #(Absolute)- Auto 0.2 (0.2-0.8); Monocytes %(Percent)- Auto 2.8 % (4.5-10.7); Platelet Count 156 K/uL (142-355)
[2024-04-08 06:11] LABS: Potassium 4.6 mmol/L (3.6-5.2)
[2024-04-08] MEDS: hydroCHLOROthiazide 25 MG TABLET PO SCH (09:13)
--- NOTE | 2024-04-08 11:00 | Progress Note ---
Progress Note: Subjective Subjective Interval history: Hospital stay day 2 patient resting in SF position watching television. He reports continued complaints of anxiety as well as cough and shortness of breath. He is on O2 at 3 L via nasal cannula with sats at 97%. Patient with known history of EtOH abuse and [facility] protocol in place. Exam Exam: Patient sitting up on side of bed and family member at bedside upon entering room for exam. Constitutional: normal general appearance, distress noted (moderate) and (respiratory), abnormal body habitus (overweight), no limitations and alert Vital Signs - 24 hr 04/07/24 11:17 04/07/24 11:17 04/07/24 11:59 Temperature 97.5 F L Pulse Rate [Left C arotid] 117 H Respiratory Rate 19 Blood Pressure Blood Pressure [Ri ght Arm] 155/100 Pulse Oximetry 96 96 97 Oxygen Delivery Me thod Nasal Cannula Nasal Cannula Oxygen Flow Rate 3 3 04/07/24 14:00 04/07/24 15:10 04/07/24 16:00 Temperature 97.6 F Pulse Rate [Left C arotid] 108 H Respiratory Rate 18 Blood Pressure 155/98 Blood Pressure [Ri ght Arm] 139/85 Pulse Oximetry 92 L 98 Oxygen Delivery Me thod Nasal Cannula Oxygen Flow Rate 3 04/07/24 18:00 04/07/24 20:10 04/07/24 21:02 Temperature 97.4 F L Pulse Rate [Left C arotid] 93 H Respiratory Rate 20 Blood Pressure 139/85 Blood Pressure [Ri ght Arm] 132/83 Pulse Oximetry 99 95 Oxygen Delivery Me thod Nasal Cannula Oxygen Flow Rate 04/07/24 21:02 04/07/24 23:41 04/08/24 05:01 Temperature 98.0 F 97.6 F Pulse Rate [Left C arotid] 81 80 Respiratory Rate 20 18 Blood Pressure Blood Pressure [Ri ght Arm] 125/73 127/72 Pulse Oximetry 95 90 L 92 L Oxygen Delivery Me thod Nasal Cannula Nasal Cannula Nasal Cannula Oxygen Flow Rate 2 04/08/24 07:44 04/08/24 07:44 04/08/24 08:05 Temperature 97.6 F Pulse Rate [Left C arotid] 117 H Respiratory Rate 18 Blood Pressure Blood Pressure [Ri ght Arm] 163/90 Pulse Oximetry 95 95 97 Oxygen Delivery Me thod Nasal Cannula Nasal Cannula Oxygen Flow Rate 3 3 04/08/24 09:14 Temperature Pulse Rate [Left C arotid] Respiratory Rate Blood Pressure 163/90 Blood Pressure [Ri ght Arm] Pulse Oximetry Oxygen Delivery Me thod Oxygen Flow Rate HENMT: normocephalic, head/scalp atraumatic, hearing grossly normal bilaterally, external ears normal, EACs normal, nasal mucous membranes normal, external nose normal, oral mucous membranes normal, oropharynx normal, dentition normal and gingiva normal Eyes: PERRL, EOMs intact bilaterally, conjunctivae normal, no scleral icterus, no papilledema, normal visual wei by confrontation, alignment normal, periorbital findings normal and no nystagmus Neck/C-Spine: visual inspection normal, trachea midline, cervical spine nontender, cervical full ROM noted, supple, no meningeal signs and thyroid nor mal Lymph: no lymphadenopathy noted and no lymphedema noted Chest: inspection of chest normal, inspection of breast(s) abnormal and palpation of breast(s) abnormal Respiratory: breath sounds equal bilaterally, abnormal respiratory effort (labored), auscultation abnormal (diminished breath sound) (Lower lobes), wheezing noted (expiratory wheezes), rales noted (throughout), no retractions and use of accessory muscles noted (Belly Breathing) Cardiovascular: heart rate abnormal (117) (tachycardic), regular rhythm noted, no JVD, no clicks, peripheral pulses 2+ throughout and no additional abnormal heart sounds Gastrointestinal: abdomen normal to inspection, abdomen soft to palpation, nontender to palpation, distended, normoactive bowel sounds, no hepatosplenomegaly, no masses, no pulsatile mass and normal rectal exam (deferred) Genitourinary: no CVA tenderness, bladder normal to palpation, penis abnormal (deferred), uncircumcised, testes abnormal, meatus abnormal (deferred), scrotum abnormal (deferred) and inguinal lymphadenopathy noted Back/Pelvis: spine normal to inspection, no thoracic spine tenderness, no lumbar spine tenderness, thoracic spine ROM normal, lumbar spine ROM normal and no paraspinal muscle tenderness noted Extremities: normal to inspection, normal to palpation, no tenderness, full ROM, no joint enlargement and no deformity Neurology: spectroscopist II-XII intact, no movement abnormality noted, no focal motor deficit noted, no sensory deficits noted, gait abnormality noted (unable to access), speech normal, coordination normal, no pronator drift noted, no fasciculations noted and GCS normal Psychiatry: Mental Status Exam documented within this Exam's Psych section mental status grossly normal, oriented x3, thought process normal, cooperative, affect normal, psychomotor activity normal and memory normal Skin: skin color normal, no rash, no lesions, no ecchymosis noted, no wounds, no lacerations, skin turgor normal, no jaundice, no petechiae, no mottling, nails normal and no alopecia Progress Note: Objective Labs Labs: CBC WBC 7.0 K/uL (3.7-9.6) 04/08/24 05:00 RBC 4.5 M/uL (4.40-5.80) 04/08/24 05:00 Hgb 14.6 gm/dL (14.0-17.4) 04/08/24 05:00 Hct 43.1 % (41.3-50.1) 04/08/24 05:00 MCV 97.0 fl (81.9-96.5) H 04/08/24 05:00 MCH 32.9 pg (27.6-33.7) 04/08/24 05:00 MCHC 34.0 g/dl (33.0-35.7) 04/08/24 05:00 RDW 14.3 % (11.0-14.8) 04/08/24 05:00 Plt Count 156 K/uL (142-355) 04/08/24 05:00 MPV 9.2 fl (6.0-10.4) 04/08/24 05:00 Gran % 92.4 % (49.1-73.1) H 04/08/24 05:00 Lymph % (Auto) 4.7 % (17.6-39.05) L 04/08/24 05:00 [place] % (Auto) 2.8 % (4.5-10.7) L 04/08/24 05:00 Eos % (Auto) 0.0 % (0.0-4.0) 04/08/24 05:00 Baso % (Auto) 0.1 (0.0-1.3) 04/08/24 05:00 Lymph # (Auto) 0.3 (0.8-2.9) L 04/08/24 05:00 [place] # (Auto) 0.2 (0.2-0.8) 04/08/24 05:00 Eos # (Auto) 0.0 (0.0-0.3) 04/08/24 05:00 Baso # (Auto) 0.0 (0.0-0.1) 04/08/24 05:00 Absolute Gran (auto) 6.5 (2.0-6.2) H 04/08/24 05:00 BMP Sodium 132 mmol/L (136-145) L 04/08/24 05:00 Potassium 4.6 mmol/L (3.6-5.2) 04/08/24 05:00 Chloride 97.0 mmol/L (98-107) L 04/08/24 05:00 Carbon Dioxide 31 mmol/L (21-32) 04/08/24 05:00 Anion Gap 4.0 mEq/L (4-14) 04/08/24 05:00 BUN 41 mg/dL (7-18) H 04/08/24 05:00 Creatinine 1.5 mg/dL (0.6-1.3) H 04/08/24 05:00 Estimated GFR 52.6 (>59.9) 04/08/24 05:00 Glucose 126 mg/dL (70-110) H 04/08/24 05:00 Calcium 8.8 mg/dL (8.5-10.1) 04/08/24 05:00 Phosphorus 3.7 mg/dL (2.5-4.9) 04/08/24 05:00 Magnesium 2.1 mg/dL (1.8-2.4) 04/08/24 05:00 Total Bilirubin 0.54 mg/dL (0.0-1.0) 04/08/24 05:00 AST 116 U/L (15-37) H 04/08/24 05:00 ALT 218 U/L (30-65) H 04/08/24 05:00 Alkaline Phosphatase 72 U/L (50-136) 04/08/24 05:00 Total Protein 7.1 g/dL (6.4-8.2) 04/08/24 05:00 Albumin 3.0 g/dL (3.4-5.0) L 04/08/24 05:00 Cardiac Enzymes Troponin I High Sens 53.40 ng/L (4.0-60.4) 04/06/24 17:31 Liver Function Total Bilirubin 0.54 mg/dL (0.0-1.0) 04/08/24 05:00 AST 116 U/L (15-37) H 04/08/24 05:00 ALT 218 U/L (30-65) H 04/08/24 05:00 Alkaline Phosphatase 72 U/L (50-136) 04/08/24 05:00 Total Protein 7.1 g/dL (6.4-8.2) 04/08/24 05:00 Albumin 3.0 g/dL (3.4-5.0) L 04/08/24 05:00 Urine Urine Color Straw (STRAW/YELL.) 04/06/24 05:16 Urine Appearance Clear (CLEAR) 04/06/24 05:16 Ur Specific [place] 1.010 (1.001-1.035) 04/06/24 05:16 Urine Protein Negative (NEGATIVE) 04/06/24 05:16 Urine Glucose (UA) Normal (NORMAL) 04/06/24 05:16 Urine Ketones Negative (NEGATIVE) 04/06/24 05:16 Urine Occult Blood Negative (NEG - TRACE) 04/06/24 05:16 Urine Nitrite Negative (NEGATIVE) 04/06/24 05:16 Urine Bilirubin Negative (NEGATIVE) 04/06/24 05:16 Urine Urobilinogen Normal (NORMAL) 04/06/24 05:16 Ur Leukocyte Esterase Negative (NEGATIVE) 04/06/24 05:16 Pulse Oximetry SpO2 results: 97% O2 @ 3 L via nasal cannula Attestation: I have reviewed the pertinent pulse oximetry results. Progress Note: A&P Assessment and Plan (1) COPD exacerbation: Assessment and Plan: Continue with O2 at 3 L via nasal cannula to keep sats at or greater than 92% Chest x-ray Zithromax 500 IV daily Incentive spirometer use as directed Continue with neb treatments as directed and as needed Continue home medications as directed Consult pulmonary rehab for possible eval and treatment at discharge (2) Elevated troponin: Assessment and Plan: Suspect reactive to COPD exacerbation Trended down with no changes noted on EKG EKG daily (3) COPD (chronic obstructive pulmonary disease): Assessment and Plan: Continue with O2 at 3 L via nasal cannula to keep sats at or greater than 92% Chest x-ray Incentive spirometer use as directed Continue with neb treatments as directed and as needed Continue home medications as directed Consult pulmonary rehab for possible eval and treatment at discharge Qualifiers: COPD type: COPD with acute exacerbation Qualified Code(s): J44.1 - Chronic obstructive pulmonary disease with (acute) exacerbation (4) CAD (coronary artery disease): Assessment and Plan: Continue home medications as directed Vital signs per protocol Qualifiers: Associated angina: unspecified whether angina present Coronary Disease-Associated Artery/Lesion type: [place] artery [place] vs. transplanted heart: [place] heart Qualified Code(s): I25.10 - Atherosclerotic heart disease of [place] coronary artery without angina pectoris (5) Dyspnea: Assessment and Plan: Continue with O2 at 3 L via nasal cannula to keep sats at or greater than 92% Chest x-ray Incentive spirometer use as directed Continue with neb treatments as directed and as needed Continue home medications as directed Consult pulmonary rehab for possible eval and treatment at discharge Qualifiers: Dyspnea type: shortness of breath Qualified Code(s): R06.02 - Shortness of breath (6) Alcohol withdrawal: Assessment and Plan: Continue with CIWA protocol Provider recommends an aggressive treatment of phenobarbital with Ativan IV to help with withdrawal of alcohol abuse. Qualifiers: Complication of substance-induced condition: with unspecified complication Qualified Code(s): F10.939 - Alcohol use, unspecified with withdrawal, unspecified Plan Provider recommends an aggressive treatment of phenobarbital with Ativan IV to help with withdrawal of alcohol abuse. Continue with CIWA protocol. With his continued complaints of dyspnea and wheezing we will continue to be aggressive with his neb treatments as well as use of incentive spirometer. We have requested pulmonary rehab to screen this patient for possible eval and treatment. Will continue on 3 L O2 via nasal cannula and titrate to maintain sats at or greater than 92%. Aspirin 81 mg PO DAILY Spironolactone 25 mg PO DAILY Nicotine 21 mg/hr patch (1) ea. TD DAILY Phenobarbital Sodium 260 mg in Sodium Chloride 54 @ 100 mls/hr INJ ONCE Hydrochlorothiazide 25 mg PO DAILY Losartan Potassium 50 mg PO DAILY Pantoprazole Sodium 40 mg PO DAILY Albuterol Sulfate 3 ml INH RQ4 Budesonide 0.5 mg INH RBID Methylprednisolone Sodium Succinate 40 mg INJ Q12H Acetaminophen 500 mg PO Q6H PRN Lorazepam 1 mg IVP Q1H PRN Fall Risk Details [place] Fall Scale Risk Level: Low Fall Risk Current Medications: Current Medications Acetaminophen (Acetaminophen 500 Mg Tablet) 500 mg PO Q6H PRN PRN Reason: Pain Last Admin: 04/06/24 10:22 Dose: 500 mg Albuterol Sulfate (Ipratropium/Albuterol Sulfate 3 Ml Ampul.Neb) 3 ml INH RQ4 [facility] Last Admin: 04/08/24 07:44 Dose: 3 ml Aspirin (Aspirin 81 Mg Tablet.) 81 mg PO DAILY [facility] Last Admin: 04/08/24 09:13 Dose: 81 mg Budesonide (Budesonide 0.5 Mg/2 Ml Ampul.Neb) 0.5 mg INH RBID [facility] Last Admin: 04/08/24 07:44 Dose: 0.5 mg Hydrochlorothiazide (Hydrochlorothiazide 25 Mg Tablet) 25 mg PO DAILY [facility] Last Admin: 04/08/24 09:13 Dose: 25 mg Azithromycin 500 mg/ Sodium (Chloride) 250 mls @ 250 mls/hr IV DAILY [facility] Stop: 04/10/24 09:59 Lorazepam (Lorazepam 2 Mg/Ml Vial) 1 mg IVP Q1H PRN; Protocol PRN Reason: Agitation Last Admin: 04/08/24 09:14 Dose: 1 mg Losartan Potassium (Losartan Potassium 50 Mg Tablet) 50 mg PO DAILY [facility] Last Admin: 04/08/24 09:14 Dose: 50 mg Methylprednisolone Sodium Succinate (Methylprednisolone Sod Succ/Pf 40 Mg/Ml Vial) 40 mg INJ Q12H [facility] Last Admin: 04/07/24 22:17 Dose: 40 mg Morphine Sulfate (Morphine Sulfate 4 Mg/Ml Cartridge) 4 mg IVP Q6H PRN PRN Reason: pain 7-10 Last Admin: 04/07/24 22:17 Dose: 4 mg Nicotine (Nicotine 21 Mg/Hr .Td24) 1 each TD DAILY [facility] Last Admin: 04/08/24 09:13 Dose: 1 each Pantoprazole Sodium (Pantoprazole Sodium 40 Mg Tablet.) 40 mg PO DAILY [facility] Last Admin: 04/08/24 09:13 Dose: 40 mg Phenobarbital (Phenobarbital 32.4 Mg Tablet) 32.4 mg PO DAILY [facility] Spironolactone (Spironolactone 50 Mg Tablet) 25 mg PO DAILY [facility] Last Admin: 04/08/24 09:13 Dose: 25 mg Time Spent With Patient Time: Total time spent is greater than 50% in coordination of care (as documented) at patient's floor/unit and/or counseling patient: Time with patient: 25 - 35 minutes
[2024-04-08] MEDS: PHENOBARBITAL SODIUM INJ ONE ×2 (11:12→11:17)
[2024-04-08] MEDS: SODIUM CHLORIDE 0.9% INJ ONE ×2 (11:12→11:17)
[2024-04-08] MEDS: AZITHROMYCIN 500 MG 500 MG in 0.9 % SODIUM CHLORIDE 250 ML IV SCH ×2 (11:16→11:19)
[2024-04-08] MEDS: METOPROLOL TARTRATE 50 MG TABLET PO SCH (11:58)
[2024-04-08] MEDS: PHENobarbitaL 32.4 MG TABLET PO SCH (19:51)
[2024-04-08] MEDS: HYDROCODONE/ACETAMINOPHEN 5/325 MG TABLET PO PRN (22:55)
[2024-04-09 06:26] LABS: Basophils%(Percent) Auto 0.2 (0.0-1.3); Granulocytes % - Auto 90.6 % (49.1-73.1); Granulocytes#(Absolute)- Auto 8.5 (2.0-6.2); Hematocrit 43.5 % (41.3-50.1); Mean Corpuscular Volume 96.6 fl (81.9-96.5); Monocytes #(Absolute)- Auto 0.4 (0.2-0.8); Monocytes %(Percent)- Auto 3.9 % (4.5-10.7); Platelet Count 163 K/uL (142-355); White Blood Count 9.3 K/uL (3.7-9.6)
[2024-04-09 06:34] LABS: Potassium 4.9 mmol/L (3.6-5.2)
[2024-04-09 07:56] VITALS: BP 125/89; PULSE 81; RESP 18; TEMP 98.3
[2024-04-09] MEDS ORDERED: PHENobarbitaL 32.4 MG TABLET PO SCH (09:00)
--- NOTE | 2024-04-09 11:10 | Discharge Summary ---
DS: Providers Provider Date of admission: 04/06/24 06:35 Primary care physician: Jorge Hermosillo DO Admitting clinician: Donald Castellanos Attending physician on admission: Roxanna Momin Attending physician on discharge: Roxanna Momin Discharging clinician: Jayashree Dallas Anticipated date of discharge: 04/09/24 DS: Diagnosis Discharge Diagnosis (1) COPD exacerbation: Assessment and plan: Continue with O2 at 3 L via nasal cannula to keep sats at or greater than 92% Zithromax 250MG daily X3 DAYS Incentive spirometer use as directed Continue with neb treatments as directed and as needed Continue home medications as directed Contact your optical glass silverer to schedule follow-up appointment- Call them on Wednesday (2) Elevated troponin: Assessment and plan: Reactive Improved. (3) Alcohol withdrawal: Assessment and plan: Continue to refrain from EtOH use Phenobarbital 30 mg p.o. twice daily x 5 days Librium p.o. x 5 days Qualifiers: Complication of substance-induced condition: with unspecified complication Qualified Code(s): F10.939 - Alcohol use, unspecified with withdrawal, unspecified (4) CHF (congestive heart failure): Qualifiers: Heart failure type: combined systolic and diastolic Heart failure chronicity: acute on chronic Qualified Code(s): I50.43 - Acute on chronic combined systolic (congestive) and diastolic (congestive) heart failure (5) CAD (coronary artery disease): Assessment and plan: Continue home medications as directed Reviewed importance of diet and exercise Is important that you follow-up with your supervisor pole yard call them on Wednesday and schedule your follow-up appointment Qualifiers: Associated angina: unspecified whether angina present Coronary Disease- Associated Artery/Lesion type: [place] artery [place] vs. transplanted heart: [place] heart Qualified Code(s): I25.10 - Atherosclerotic heart disease of [place] coronary artery without angina pectoris (6) Dyspnea: Assessment and plan: Continue with O2 at 3 L via nasal cannula to keep sats at or greater than 92% Zithromax 250MG daily X3 DAYS Incentive spirometer use as directed Continue with neb treatments as directed and as needed Continue home medications as directed Contact your optical glass silverer to schedule follow-up appointment- Call them on Wednesday Qualifiers: Dyspnea type: shortness of breath Qualified Code(s): R06.02 - Shortness of breath (7) COPD (chronic obstructive pulmonary disease): Assessment and plan: Continue with O2 at 3 L via nasal cannula to keep sats at or greater than 92% Zithromax 250MG daily X3 DAYS Incentive spirometer use as directed Continue with neb treatments as directed and as needed Continue home medications as directed Contact your optical glass silverer to schedule follow-up appointment- Call them on Wednesday Qualifiers: COPD type: COPD with acute exacerbation Qualified Code(s): J44.1 - Chronic obstructive pulmonary disease with (acute) exacerbation (8) Electrolyte abnormality: (9) CHF exacerbation: Qualifiers: Heart failure type: unspecified Qualified Code(s): I50.9 - Heart failure, unspecified Plan Patient is back to baseline and stable for discharge home to follow-up outpatient with his supervisor pole yard as well as PCP Dr. Hermosillo and his optical glass silverer Dr. Braxton. We have encouraged him to contact them on Wednesday and schedule his hospital follow-up appointment. We are also leaving a note for the health and safety coordinator here to make sure that these follow-ups are in place. We have asked the patient and he is in agreement to continue with cessation of EtOH use. We are discharging him home with phenobarbital and Librium to assist. We did encourage him to continue with his home medications as directed. I discussed with the patient on the current clinical impression and answered any questions that they had at the time of discharge. All studies were reviewed with the patient. The patient understands that at this time there is no indication for further stay; however, if symptoms worsen or does not coninue to improve, or if they have further questions/concerns, they must call their primary care physician immediately or return here for repeat evaluation. They were instructed to follow up with their physician as directed in the discharge instructions. The importance of appropriate follow up was also discussed with the patient. The patient/family expressed understanding of the plan, agreed to the above. The patient also understands that at this time there is no evidence for a more malignant underlying process, but they also understand that disease processes may become more evident with time, and understands reasons to return to the hospital/ Emergency Department. More extensive discharge instructions were given in the patient's discharge paperwork. DS: Summary Hospital Course Hospital Course: 63-year-old male that presented to the ER via EMS with complaint of shortness of breath, sputum color change, fever, body aches x 2 to 3 days has been evaluated by physical exam, CBC, CMP, magnesium, phosphorus, BNP, serial troponins, EKG, plain film chest x-ray, and urinalysis results as noted in charting. Patient's initial troponin was mildly elevated but is trending downward, [facility] ongoing diuresis and respiratory therapy. The patient was continued on breathing treatments and steroid therapy during his stay as well as electrolyte management. His hospital course remained uneventful and his symptoms continue to improve. Chest x-ray performed this morning continue to show mildly hyperinflated lungs due to COPD without signs of superimposed pneumonia, CHF or pleural effusion. There was no change or acute findings from previous chest x-rays. His heart size is normal with pacemaker. His sats are maintaining with supplemental O2 at 3 L via nasal cannula which is his baseline for home. He reports that his anxiety has improved and he will "do his best" to refrain from EtOH use once discharged. We did encourage smoking cessation with the patient as well. I have discussed with and counseled the patient on the health risk of tobacco and cigarette smoke, including heart disease and stroke. There is also the obvious economic benefit to quitting smoking. I have encouraged the patient to pick a date and stop smoking and follow-up with their primary care provider for more information on smoking cessation. I have assured they are aware of the available resources. This included approximately 3 to 5 minutes of education, interaction and documentation. Time spent discussing smoking cessation with patient: 3 to 10 minutes Status at Discharge Functional status at discharge: independent ambulation Overall status at discharge: patient is back to baseline Time Spent with Patient Time attestation: Total time spent providing and/or coordinating discharge services: Time spent: less than 30 minutes Exam Exam: Patient sitting up on side of bed and family member at bedside upon entering room for exam. Constitutional: normal general appearance, distress noted (moderate) and (respiratory), abnormal body habitus (overweight), no limitations and alert Vital Signs - 24 hr 04/08/24 11:08 04/08/24 11:58 04/08/24 12:29 Temperature 98.2 F Pulse Rate 117 H Pulse Rate [Left C arotid] 116 H Respiratory Rate 18 Blood Pressure 163/90 Blood Pressure [Ri ght Arm] 114/67 Pulse Oximetry 97 90 L Oxygen Delivery Me thod Nasal Cannula Oxygen Flow Rate 3 04/08/24 14:00 04/08/24 15:30 04/08/24 16:13 Temperature 98.5 F Pulse Rate Pulse Rate [Left C arotid] 83 Respiratory Rate 18 Blood Pressure 114/67 Blood Pressure [Ri ght Arm] 106/66 Pulse Oximetry 97 95 Oxygen Delivery Me thod Nasal Cannula Oxygen Flow Rate 3 04/08/24 17:06 04/08/24 19:48 04/08/24 20:41 Temperature 97.6 F Pulse Rate Pulse Rate [Left C arotid] 110 H Respiratory Rate 22 Blood Pressure 106/66 Blood Pressure [Ri ght Arm] 147/81 Pulse Oximetry 98 98 Oxygen Delivery Me thod Nasal Cannula Oxygen Flow Rate 04/08/24 20:41 04/08/24 22:55 04/09/24 00:05 Temperature 98.1 F Pulse Rate 105 H Pulse Rate [Left C arotid] 102 H Respiratory Rate 20 Blood Pressure Blood Pressure [Ri ght Arm] 131/76 Pulse Oximetry 98 97 Oxygen Delivery Me thod Nasal Cannula Nasal Cannula Oxygen Flow Rate 3 04/09/24 04:00 04/09/24 07:32 04/09/24 07:32 Temperature 97.9 F Pulse Rate Pulse Rate [Left C arotid] 108 H Respiratory Rate 20 Blood Pressure Blood Pressure [Ri ght Arm] 147/86 Pulse Oximetry 98 100 100 Oxygen Delivery Me thod Nasal Cannula Nasal Cannula Oxygen Flow Rate 3 3 04/09/24 07:54 04/09/24 08:31 Temperature 98.3 F Pulse Rate Pulse Rate [Left C arotid] 81 Respiratory Rate 18 Blood Pressure 125/89 Blood Pressure [Ri ght Arm] 125/89 Pulse Oximetry 98 Oxygen Delivery Me thod Nasal Cannula Oxygen Flow Rate 3 HENMT: normocephalic, head/scalp atraumatic, hearing grossly normal bilaterally, external ears normal, EACs normal, nasal mucous membranes normal, external nose normal, oral mucous membranes normal, oropharynx normal, dentition normal and gingiva normal Eyes: PERRL, EOMs intact bilaterally, conjunctivae normal, no scleral icterus, no papilledema, normal visual wei by confrontation, alignment normal, periorbital findings normal and no nystagmus Neck/C-Spine: visual inspection normal, trachea midline, cervical spine nontender, cervical full ROM noted, supple, no meningeal signs and thyroid normal Lymph: no lymphadenopathy noted and no lymphedema noted Chest: inspection of chest normal Respiratory: breath sounds equal bilaterally, normal respiratory effort, auscultation abnormal (diminished breath sound) (Lower lobes), wheezing noted (expiratory wheezes), no rales, no retractions and no use of accessory muscles (Belly Breathing) Cardiovascular: normal heart rate noted (117), regular rhythm noted, no JVD, no clicks, peripheral pulses 2+ throughout and no additional abnormal heart sounds Gastrointestinal: abdomen normal to inspection, abdomen soft to palpation, nontender to palpation, distended, normoactive bowel sounds, no hepatosplenomegaly, no masses, no pulsatile mass and normal rectal exam (deferred) Genitourinary: no CVA tenderness and bladder normal to palpation Back/Pelvis: spine normal to inspection, no thoracic spine tenderness, no lumbar spine tenderness, thoracic spine ROM normal, lumbar spine ROM normal and no paraspinal muscle tenderness noted Extremities: normal to inspection, normal to palpation, no tenderness, full ROM, no joint enlargement and no deformity Neurology: 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 II-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, no movement abnormality noted, no focal motor deficit noted, no sensory deficits noted, gait normal, speech normal, coordination normal, no pronator drift noted, no fasciculations noted and GCS normal Psychiatry: Mental Status Exam documented within this Exam's Psych section mental status grossly normal, oriented x3, thought process normal, cooperative, affect normal, psychomotor activity normal and memory normal Skin: skin color normal, no rash, no lesions, no ecchymosis noted, no wounds, no lacerations, skin turgor normal, no jaundice, no petechiae and no mottling DS: Data Data Completed and Pending Labs on day of discharge: Labs from last 24 hours 04/09/24 04/08/24 06:16 22:05 WBC 9.3 RBC 4.5 Hgb 14.8 Hct 43.5 MCV 96.6 H MCH 32.8 MCHC 34.0 RDW 14.1 Plt Count 163 MPV 9.3 Gran % 90.6 H Lymph % (Auto) 5.3 L Citrus % (Auto) 3.9 L Eos % (Auto) 0.0 Baso % (Auto) 0.2 Lymph # (Auto) 0.5 L [place] # (Auto) 0.4 Eos # (Auto) 0.0 Baso # (Auto) 0.0 Absolute Gran (auto) 8.5 H Sodium 131 L Potassium 4.9 Chloride 98.0 Carbon Dioxide 29 Anion Gap 4.0 BUN 50 H Creatinine 1.5 H Estimated GFR 52.6 Glucose 130 H Calcium 8.7 Phosphorus 5.0 H Magnesium 2.1 Total Bilirubin 0.49 AST 92 H ALT 210 H Alkaline Phosphatase 86 B-Natriuretic Peptide 23.4 Total Protein 7.2 Albumin 3.2 L Imaging Chest x-ray: Attestation: I have reviewed the pertinent imaging results. Radiologist's impression: EXAM: Chest PA and lateral views HISTORY: COPD COMPARISON: 04/06/2024 FINDINGS: Heart size normal with pacemaker. The lungs clear although mildly hyperinflated/COPD. There is no evidence for superimposed pneumonia, CHF or pleural effusion. IMPRESSION: No change or acute findings. THIS IS AN ELECTRONICALLY VERIFIED FINAL REPORT 04/09/2024 9:47 AM - Electronically signed by Ulises Danielle MD Discharge Plan Discharge Disposition: Home, Self-Care Condition: Improved Discharge Medications: New aspirin 81 mg Tablet,Delayed Release (Dr/Ec) 81 mg PO DAILY 30 Days Qty: 30 0RF spironolactone 50 mg Tablet 25 mg PO DAILY 30 Days Qty: 15 0RF Breztri Aerosphere 160-9-4.8 mcg/actuation HFA aerosol inhaler 2 inh inhalation BID 30 Days Qty: 10.7 0RF azithromycin [Zithromax] 250 mg tablet 250 mg PO DAILY 3 Days Qty: 3 0RF Rx Instructions: start on day 2 of therapy metronidazole [Flagyl] 375 mg capsule 375 mg PO .Every other day 5 Days Qty: 5 0RF chlordiazepoxide HCl 5 mg capsule 5 mg PO BID PRN (Reason: ETOH withdrawl) 5 Days Qty: 10 0RF phenobarbital 30 mg tablet 30 mg PO BID 5 Days Qty: 10 0RF Continued ipratropium-albuterol 0.5 mg-3 mg(2.5 mg base)/3 mL solution for nebulization 3 ml INHALATION Q8H Patient Comments: USE ONE VIAL VIA NEBULIZER EVERY EIGHT HOURS PER RESPIRATORY THERAPY SCHEDULE pantoprazole 40 mg tablet,delayed release (DR/EC) 40 mg PO DAILY Patient Comments: TAKE ONE TABLET BY MOUTH EVERY DAY hydrochlorothiazide 25 mg tablet 25 mg PO DAILY Patient Comments: TAKE ONE TABLET BY MOUTH EVERY DAY losartan 50 mg tablet 50 mg PO DAILY Patient Comments: TAKE ONE TABLET BY MOUTH EVERY DAY nicotine [Nicoderm CQ] 21 mg/24 hr patch 24 hour 1 patch transdermal DAILY Discontinued doxycycline hyclate 100 mg capsule 100 mg PO BID Patient Comments: TAKE ONE CAPSULE BY MOUTH TWICE DAILY Discharge Orders: Discharge Order (Routine); Ordered 04/09/24 Ordered By: Jayashree Dallas Activity: resume usual activities as tolerated Diet: advance to your usual diet Interventions: Discharge Assessment Last Done: 04/09/24 11:33 MED/SURG & ICU Observation Charge Sheet Last Done: 04/09/24 11:53 Plan of Treatment: Continue home medications as directed. Follow-up with your primary care provider/optical glass silverer/supervisor pole yard as directed on discharge instructions. Patient Instructions: Heart Failure (GEN), Coronary Artery Disease (GEN), How to Stop Smoking (GEN), Cigarette Smoking and Your Health (GEN), COPD (Chronic Obstructive Pulmonary Disease) (GEN), Alcohol Withdrawal (GEN) Activity Restrictions/Additional Instructions: It is important that you follow-up with your primary care provider as well as your specialist as directed. Call their office on Wednesday and schedule a follow- up appointment. It is important that you complete antibiotics as directed. Continue to take all medications as directed on bottle. Encourage fluids to maintain hydration We do encourage you to continue with your EtOH cessation. We also encourage you to stop smoking. Take all medications as prescribed to completion. Please follow up with your primary care physician or referred specialist within 24-48 hours, unless otherwise specified. Please call their office and make an appointment. Return to your closest emergency department immediately if your signs or symptoms worsen or new signs or symptoms appear. Please read and follow discharge instructions. Thank you for choosing [facility] Forms: Portal/Health Info Access Inst Follow-Ups: Jorge Hermosillo DO [Primary Care Provider] - Discharge Date/Time: 04/09/24 12:23
== END 2024-04-09 12:23 | disposition home or self-care (01) ==
LOC: SUPCPDRO → ED 02:53 → MS 02:53
PROVIDERS: ADMIT Nurse Practitioner Family; ATTEND Family Medicine